=== PATIENT | female | born 2000 | race Two or more races ===

== ENCOUNTER → 2021-04-23 | Emergency (ER) | payer BC, OTHER ==
[~2021-04-23] VITALS: Ht 162.6 cm; Wt 72.6 kg
[~2021-04-23] MED LIST: EPINEPHrine HCL 1 MG/1 ML AMP SC ONE
[2021-04-23 11:12] VITALS: BP 111/62
== END | disposition home or self-care (01) ==
LOC: ER 10:51
DX: L50.0 Allergic urticaria (principal)
CPT/HCPCS: 96372; 99283; J0171

== ENCOUNTER → 2021-06-04 | Outpatient (CLI) | payer BC ==
[2021-06-04 09:54] LABS: Alanine Aminotransferase 158 U/L (13-56); Aspartate Aminotransferase 109 U/L (15-37)
== END | disposition home or self-care (01) ==
LOC: LAB 08:33
PROVIDERS: ATTEND Internal Medicine
DX: R79.89 Other specified abnormal findings of blood chemistry (principal)
CPT/HCPCS: 36415; 84450; 84460